=== PATIENT | female | born 1975 | race Caucasian/White ===

== ENCOUNTER 2018-04-29 21:36 | Emergency (ER) | payer OTHER ==
--- NOTE | 2018-04-29 22:12 | EDPHY ---
H & P Stated Complaint: R ankle injury - Personal History LMP (Females 10-55): 1-7 Days Ago Current Tetanus/Diphtheria Vaccine: Unsure Current Tetanus Diphtheria and Acellular Pertussis (TDAP): Unsure - Medical/Surgical History Hx Asthma: No Hx Chronic Respiratory Disease: No Hx Diabetes: No Hx Cardiac Disease: No Hx Renal Disease: No Hx Cirrhosis: No Hx Alcoholism: No Hx HIV/AIDS: No Hx Splenectomy or Spleen Trauma: No Other PMH: Umbilical hernia. - Social History Smoking Status: Never smoked Time Seen by Provider: 04/29/18 22:11 Constitutional: Initial Vital Signs Temperature (C) 36.5 C 04/29/18 21:41 Heart Rate 74 04/29/18 21:41 Respiratory Rate 16 04/29/18 21:41 Blood Pressure 116/72 04/29/18 21:41 O2 Sat (%) 97 04/29/18 21:41 O2 Delivery Mode Room Air Allergies/Adverse Reactions: acetaminophen [From Tylenol] Allergy (Verified 04/29/18 21:45) aspirin Allergy (Verified 04/29/18 21:46) Home Medications: Medication Instructions Recorded NK [No Known Home Meds] 04/29/18 Medical Decision Making - Diagnostics Imaging Results: Imaging Impressions Foot X-Ray 04/29/18 22:03 Impression: 1. Possible avulsion fracture of the lateral aspect of the distal calcaneus. 2. Moderate hallux valgus. ED Course/Re-evaluation: CHIEF COMPLAINT: Right ankle injury HISTORY OF PRESENT ILLNESS: The patient is a 43 y/o female complaining of right ankle pain after injury. She was getting off a horse today when she had a supination injury her right ankle. She reports swelling and pain across the lateral and anterior aspects of the right ankle. She reports many years ago she had a serious sprain to the same ankle. She denies any other injuries. REVIEW OF SYSTEMS: A 10 point review of systems was performed and is negative with the exception of the elements mentioned in the history of present illness. PHYSICAL EXAM: HR, BP, O2 Sat, RR. Temp noted General Appearance: Alert, well hydrated, appropriate, and non-toxic appearing. Head: Atraumatic without scalp tenderness or obvious injury Eyes: Pupils equal, round, reactive to light and accommodation, EOMI, no trauma , no injection. Ears: Clear bilaterally, no perforation, normal landmarks Nose: Atraumatic, no rhinorrhea, clear. Throat: There is no erythema or exudates, no lesions, normal tonsils, mucus membranes moist. Neck: Supple, nontender, no lymphadenopathy. Respiratory: No retractions, no distress, no wheezes, and no accessory muscle use. Lungs are clear to auscultation bilaterally. Cardiovascular: Regular rate and rhythm, no murmurs, rubs, or gallops. Bilateral carotid, radial, dorsalis pedis, and posterior tibial pulses intact. Good capillary refill all extremities. Gastrointestinal: Abdomen is soft, nontender, non-distended, no masses, no rebound, no guarding, no peritoneal signs. Musculoskeletal: Edema to the lateral and anterior aspects of the right ankle. Tender to palpation. Normal active ROM of all extremities. Neurological: Alert, appropriate, and interactive. Skin: No rashes, good turgor, no nodules on palpation. Past medical history: Right ankle sprain Past surgical history: Denies Family history: Non-contributory Social history: , lives in [place], employed DIAGNOSTICS/PROCEDURES/CRITICAL CARE TIME: DIFFERENTIAL DIAGNOSIS: The differential diagnosis for this patient's symptoms included but was not limited to fracture, sprain, and strain. MEDICAL DECISION MAKING: The patient presents with pain, edema, and tenderness in the right ankle after a supination injury. She denies any other injuries. Plan for x-ray to evaluate skeletal involvement. (Phil High) X-ray reviewed shows a very small avulsion fracture. Discussed the case with the patient additionally discussed follow-up care. Will placed on walking boot for comfort and stabilization. She understands she needs to follow up with Podiatry. Return precautions discussed as well. (Babak Graham) Departure - Departure Disposition: Home, Routine, Self-Care Clinical Impression: Right ankle sprain Qualifiers: Encounter type: initial encounter Involved ligament of ankle: unspecified ligament Qualified Code(s): S93.401A - Sprain of unspecified ligament of right ankle, initial encounter Condition: Good Instructions: Ankle Sprain (ED), Ankle Stirrup Splint (ED), Avulsion Fracture ( ED) Additional Instructions: 1. Wear brace as directed. 2. Follow up with Dr. Varela, orthopedics, regarding your visit in a few days. 3. Return to the emergency department for any worsening of condition. Referrals: [facility] PENA [Other] - As per Instructions Herb Varela MD [Medical Doctor] - As per Instructions Report Scribed for: Phil High Report Scribed by: Karla Quigley Date of Report: 04/29/18 Time of Report: 22:24
[2018-04-29 23:37] VITALS: BP 145/91
== END 2018-04-29 23:33 | disposition home or self-care (01) ==
DX: S93.401A Sprain of unspecified ligament of right ankle, initial encounter (principal); X50.9XXA Other and unspecified overexertion or strenuous movements or postures, initial encounter; Y99.8 Other external cause status; Y93.89 Activity, other specified
CPT/HCPCS: L4386